=== PATIENT | male | born 1965 | race Caucasian/White ===

== ENCOUNTER 2021-03-21 06:20 | Emergency (ER) | payer OTHER, MEDICAID ==
[~2021-03-21] VITALS: Ht 170.2 cm; Wt 79.4 kg
[2021-03-21 06:26] VITALS: BP 137/91
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
--- NOTE | 2021-03-21 06:54 | NUR ---
rad at bedside.
--- NOTE | 2021-03-21 07:14 | NUR ---
report given to stanley sanabria. transfer of care at this time.
--- NOTE | 2021-03-21 08:30 | NUR ---
PATIENT SITTING IN CHAIR OUTSIDE OF ROOM STATING BACK HURTS TO SIT IN BED.
[2021-03-21] MEDS ORDERED: IBUP-2809 PO (08:59)
--- NOTE | 2021-03-21 09:09 | NUR ---
Patient discharged with v/s stable. Written and verbal after care instructions given and explained. Patient alert, oriented and verbalized understanding of instructions. Ambulatory with steady gait. All questions addressed prior to discharge. ID band removed. Patient advised to follow up with PMD. Rx of IBUPROFEN given. Patient educated on indication of medication including possible reaction and side effects. Opportunity to ask questions provided and answered. PATIENT PROVIDED WITH FOOD
[2021-03-21 09:11] VITALS: BP 133/81
== END 2021-03-21 09:09 | disposition home or self-care (01) ==
LOC: MED 06:20
DX: S90.812A Abrasion, left foot, initial encounter (principal); L03.116 Cellulitis of left lower limb; E11.9 Type 2 diabetes mellitus without complications; I10 Essential (primary) hypertension; Z79.1 Long term (current) use of non-steroidal anti-inflammatories (NSAID); X58.XXXA Exposure to other specified factors, initial encounter; Y92.89 Other specified places as the place of occurrence of the external cause; Y93.89 Activity, other specified; Y99.8 Other external cause status
CPT/HCPCS: 73630; 99283; Q0092